=== PATIENT | male | born 1970 | race Caucasian/White ===

== ENCOUNTER 2024-11-19 23:47 | Emergency (ER) | payer OTHER, SELFPAY ==
[2024-11-19 23:49] VITALS: BP 147/98
[2024-11-20 00:31] VITALS: BMI 31.4
[2024-11-20 00:40] VITALS: BP 147/93
--- NOTE | 2024-11-20 01:47 | ED.GENMED ---
History of Present Illness
General
Chief Complaint: Nose Bleed
Source: patient
Exam Limitations: none
Time Seen by Provider: 11/20/24 01:09
History of Present Illness
History of Present Illness:
This is a 54 year old male that comes in with c/o nose bleeding. States that he was here earlier but there was no long a wait so he went home. States that he came back as he felt his nose was still bleeding. States that he blow his nose earlier and
all this blood came out. States that he felt a little SOB. Denies any fever, chills, chest pain, abd pain, nausea, vomiting, diarrhea, headache, dizziness, urinary burning.
Past History
Past History
ED Past Medical History: Hypothyroidism and Other (Celiac disease, )
ED Past Surgical History: Orthopedic (Right wrist repair. Right knee surgery)
Social History
Tobacco: Non-smoker
Alcohol: Occasional
Drug: Cocaine and Other (Amphetamine)
Personal: Single
Living: alone
Employment: Employed
Review of Systems
Review of Systems
Constitutional: Denies fever or chills
EENT: Reports other (Nose bleed)
Respiratory: Reports trouble breathing; Denies cough
Cardiac: Reports no symptoms; Denies chest pain
ABD/GI: Reports no symptoms; Denies abdominal pain, nausea, vomiting or diarrhea
: Reports no symptoms; Denies dysuria, frequency or urgency
Musculoskeletal: Reports no symptoms
Skin: Reports no symptoms
Neurological: Reports no symptoms; Denies dizzy or headache
Psychiatric: Reports no symptoms
Phy Exam
General Physical Exam
General Presentation: well appearing and no apparent distress
General age: appears stated age
General Skin: warm and dry
General Habitus: normal
General Mental: alert
General Hydration: appears well hydrated
ENT Exam
ENT Exam: TM's normal, pharynx normal, neck supple and other (No nasal bleeding noted at this time. )
Eye Exam
Eye Exam: EOMI
Cardiovascular Exam
Cardiovascular Exam: regular rate/rhythm
Pulmonary Exam
Pulmonary Exam: lungs clear, no respiratory distress, no rales, chest non tender, no crackles, no rhonchi, no wheezing and no cough
Musculoskeletal Exam
Musculoskeletal Exam: full ROM and no edema
Skin Exam
Skin Exam: normal color, warm/dry, no rash and no petechia
Psychiatric Exam
Psychiatric Exam: normal mood/affect
Course
Vital Signs
Initial and Last Documented VS:
Initial Vital Signs
Temp Pulse Resp BP Pulse Ox
98 F 94 20 147/98 97
11/19/24 23:49 11/19/24 23:49 11/19/24 23:49 11/19/24 23:49 11/19/24 23:49
Last Documented Vital Signs
Temp Pulse Resp BP Pulse Ox
98 F 86 20 147/93 92
11/19/24 23:49 11/20/24 00:40 11/19/24 23:49 11/20/24 00:40 11/20/24 00:40
MDM/Problems Addressed
Differential Diagnosis Includes:
Epistaxis,
MDM/Problems Addressed:
This is a 54 year old male that comes in with c/o nose bleed. states that he was here earlier and left. States that he felt it started to bleed again.
Had patient blow his nose and there was no clots of bleeding. Small amount of blood noted in the left nares. Cotton with lidocaine placed.
Back into see patient. Patient has not had any further bleeding. Surgifoam packing placed in the left nare. Will watch patient and if no further bleeding will discharge home.
Into see patient and patient has not had any further bleeding. Will discharge home
When patient sat up to leave he started to bleed again. Surgifoam was removed and left nare's rhino rocket was placed. Patient has remained dry at this time. Will have patient follow up with the ENT specialist in 2 days. Patient to return with any
concerns.
Chronic conditions affecting care:
NA
Acute Exacerbation and/or Progression of Chronic Illness:
NA
*Pulse Oximetry
Patient hypoxic: no
*EKG
Interpreted by ED Provider?: NA
Rate: EKG- N/A
*Food Service Kitchen Supervisor Interpretation
Rate: Food Service Kitchen Supervisor- N/A
*Critical Care Note
Total Time (30-74mins, 75-104mins- exclusive of procedures): Not Applicable
ED Attending Note
-
Portions of this chart may have been created with voice recognition software.� Occasional wrong word or��sound alike� substitutions may have occurred due to the inherent limitations of voice recognition software.
Discharge Plan
Departure
Patient Disposition: Home (Routine Discharge)
Date of Disposition: 11/20/24
Time of Disposition: 02:44
Patient with high blood pressure during this ER visit?: Yes
Condition: Good
Covid-19: Not Applicable
Discharge Problem:
Nasal bleeding
Instructions: Nosebleeds (DC), BLOOD PRESSURE
Prescriptions:
No Action
levothyroxine 25 MCG tablet
225 mcg PO DAILY AT 0700
lisinopril 5 MG tablet
5 mg PO DAILY Qty: 15 0RF
Referrals:
Jeet Smith MD [Active] - Follow up in 2-3 days
UNKNOWN - PT DOES,NOT KNOW [Family Provider] -
Activity Restrictions/Additional Instructions:
As discussed you have a rhio Rocket placed in the left nare's. This will need to be removed by the ENT specialist in the next 2 days. Please do not pull it. Please call the ENT specialist for further evaluation and treatment. IF YOU HAVE ANY
FURTHER BLEEDING, OR ANY OTHER CONCERNS PLEASE RETURN TO THE EMERGENCY ROOM
Interventions
Interventions:
*Risk Screen - Suicide Last Done: 11/19/24 23:49
*General Assessment Last Done: 11/20/24 00:28
*Neglect/Abuse Screening Last Done: 11/19/24 23:49
ED- Fall Risk Assessment Last Done: 11/20/24 00:28
*ED COVID-19 Vaccine History Last Done: 11/20/24 00:28
ED-EENT Assessment Last Done: 11/20/24 00:28
Discharge Date and Time
Print Language: ROMANSH
[2024-11-20 03:40] VITALS: BP 143/97
== END 2024-11-20 03:40 | disposition home or self-care (01) ==
LOC: EMR 23:47
PROVIDERS: EMERGENCY PHYSICIAN Student in an Organized Health Care Education/Training Program
DX: R04.0 Epistaxis (principal); R03.0 Elevated blood-pressure reading, without diagnosis of hypertension
CPT/HCPCS: 99282; 30901

== ENCOUNTER 2024-11-30 17:09 | Emergency (ER) | payer OTHER, SELFPAY ==
[2024-11-30 17:14] VITALS: BP 138/91
[2024-11-30 17:57] LABS: COVID-19 Antigen Negative (Negative)
[2024-11-30 21:49] VITALS: BP 130/90
--- NOTE | 2024-11-30 22:05 | ED.GENMED ---
History of Present Illness
General
Chief Complaint: Cold/Flu/URI Symptoms
Source: patient
Exam Limitations: none
Time Seen by Provider: 11/30/24 21:17
Nursing documentation reviewed up to this point in time: agreed with
History of Present Illness
History of Present Illness:
pt is a 54 y/o M with h/o bronchiectasis diagnosed 2010 but was never followed up he says
h/o substance abuse
URI x 1 week
dry cough and cold symptoms
had a little diarrhea nad sore throat that resolved
he says he feels better now and not sick
his family wanted him to get checked out
no sob, chest pain, leg swelling
nonocmpliant with his synthroid
Past History
Past History
ED Past Medical History: Hypothyroidism and Other (Celiac disease, )
ED Past Surgical History: Orthopedic (Right wrist repair. Right knee surgery)
Social History
Tobacco: Non-smoker
Alcohol: Occasional
Drug: Cocaine and Other (Amphetamine)
Personal: Single
Living: alone
Employment: Employed
Review of Systems
Review of Systems
Allergies reviewed?: Yes
All Other Systems: Not applicable
Phy Exam
Physical Exam
Physical Exam:
GENERAL: Alert , in no apparent distress
EYE: pupils equal and reactive
NECK: Supple
ENT: b/l TM s clear, pharynx erythematous but no tonsillar hypertrophy or exudates
CARDIAC: Regular rate and rhythm, no edema
LUNGS: No respiratory distress, fine crackles at bases, no cough, no hemoptysis
ABDOMEN: Soft, without focal tenderness, no r/g, no cvat, normal bowel sounds
NEUROLOGICAL: Alert and oriented, no focal neuro deficits
SKIN: Warm and dry, skin intact.
MUSCULOSKELETAL: No edema, well perfused.
PSYCH: Normal and appropriate interaction.
Course
Orders/Labs/Results
Orders:
Orders
11/30/24 17:17
Chest [CR Chest - 2 Views ] Urgent
Comment:
Reason For Exam: cough
11/30/24 17:19
COVID-19 Antigen Urgent
Source: Nasal Swab
Influenza A+B Rapid Molecular Urgent
ROSALBA Source: Nasal Swab
Specimen Description:
Vital Signs
Initial and Last Documented VS:
Initial Vital Signs
Temp Pulse Resp BP Pulse Ox
36.9 C 104 16 138/91 98
11/30/24 17:14 11/30/24 17:14 11/30/24 17:14 11/30/24 17:14 11/30/24 17:14
Last Documented Vital Signs
Temp Pulse Resp BP Pulse Ox
36.9 C 68 17 130/90 99
11/30/24 17:14 11/30/24 21:49 11/30/24 21:49 11/30/24 21:49 11/30/24 21:49
MDM/Problems Addressed
Differential Diagnosis Includes:
uri, pneumonia, influenza
MDM/Problems Addressed:
54 y/o F with
ED Attending Note
-
Portions of this chart may have been created with voice recognition software.� Occasional wrong word or��sound alike� substitutions may have occurred due to the inherent limitations of voice recognition software.
Discharge Plan
Departure
Patient Disposition: Home (Routine Discharge)
Date of Disposition: 11/30/24
Time of Disposition: 22:11
Patient with high blood pressure during this ER visit?: No
Condition: Fair
Covid-19: Not Applicable
Discharge Problem:
Influenza A
Instructions: Flu in adults - ED discharge instructions
Prescriptions:
No Action
levothyroxine 25 MCG tablet
225 mcg PO DAILY AT 0700
lisinopril 5 MG tablet
5 mg PO DAILY Qty: 15 0RF
Referrals:
Quique Cortez Jr., DO [Family Provider] -
Camilo Davalos MD [Active] - Follow up in 1 week (level vial inside grinder)
Activity Restrictions/Additional Instructions:
You tested positive for the flu. Your x-ray of your lungs shows scarring similar to 2010 when you were diagnosed with pulmonary fibrosis or bronchiectasis. You ought to follow-up with a level vial inside grinder as an outpatient. Please call for an
appointment. In the meantime stay home until you are fever free for 24 hours. You can use Tylenol for headaches and pain as needed. You can use [id number] remedies for your cough. Return to the ER for shortness of breath, fevers lasting
longer than 7 days, chest pain or any concern
Interventions
Interventions:
*Risk Screen - Suicide Last Done: 11/30/24 17:14
*General Assessment Last Done: 11/30/24 17:14
*Neglect/Abuse Screening Last Done: 11/30/24 17:14
*ED COVID-19 Vaccine History Last Done: 11/30/24 17:14
*Nursing Disposition Last Done: 11/30/24 22:20
ED- Pulmonary Assessment Last Done: 11/30/24 21:49
Discharge Date and Time
Discharge Date/Time: 11/30/24 22:20
Print Language: [id number]
== END 2024-11-30 22:20 | disposition home or self-care (01) ==
LOC: EMR 17:09
PROVIDERS: EMERGENCY PHYSICIAN Emergency Medicine; FAMILY PHYSICIAN Family Medicine
DX: J10.1 Influenza due to other identified influenza virus with other respiratory manifestations (principal); R19.7 Diarrhea, unspecified; Z11.52 Encounter for screening for COVID-19; J98.4 Other disorders of lung; E03.9 Hypothyroidism, unspecified; K90.0 Celiac disease; F19.11 Other psychoactive substance abuse, in remission; Z91.148 Patient's other noncompliance with medication regimen for other reason
CPT/HCPCS: 99283; 71046; 87502; 87811